=== PATIENT | female | born 1940 | race Caucasian/White ===

== ENCOUNTER 2016-08-20 17:48 | Emergency (ER) | payer MEDICARE, BC ==
[2016-08-20 17:48] VITALS: BP 133/54
--- OUTSIDE RECORDS SUMMARY | 2016-08-20 18:02 | XMS REPORT | Continuity of Care Document ---
:1940 Demographics Phone Unavailable Preferred Language Unknown Marital Status Unknown Gnosticism Affiliation Unknown Race Unknown Ethnic Group Unknown Author Organization [facility] ([facility]) Address [place] [address] Phone [phone] Care Team Providers Name Role Phone Unavailable Primary Care Provider Unavailable Source Comments This disclosure is being made pursuant to the Care Everywhere program, applicable federal and state laws, and may not contain all informaitonavailable regarding this patient.[facility] ([facility]) Active Allergies and Adverse Reactions Not on File Current Medications Not on file Active Problems Not on file Social History Tobacco Use Types Packs/Day Years Used Date Never Assessed Plan of Care Health Maintenance Due Date Last Done Comments Hepatitis B Vaccine (1 of 3 - Primary Series) 1940 Tdap Vaccine 1951 Lipid Disorder Screening 1958 Td Vaccine 1958 Mammogram 1980 Colonoscopy 1990 Zoster Vaccine 2000 Osteoporosis Screening (DXA Bone Density) 2005 Pneumococcal Vaccine (1 of 2 - PCV13) 2005 Influenza Vaccine: Seasonal (#1) 12/11/2015 Results from Last 3 Months Not on file
== END 2016-08-20 17:55 | disposition left against medical advice (07) ==
LOC: ER 17:48
DX: Z53.21 Procedure and treatment not carried out due to patient leaving prior to being seen by health care provider (principal)

== ENCOUNTER 2017-01-22 22:26 | Emergency (ER) | payer MEDICARE, BC ==
--- NOTE | 2017-01-22 22:37 | ERNOTE ---
CARDIAC HPI - General Stated Complaint:: palpatations Time Seen by Provider: 01/22/17 22:35 Source: patient Exam Limitations: no limitations - History of Present Illness Initial Comments: Pt states she has palpitations like this but are not usually this bad. I asked if she was still feeling them she said she was. HR was 81. Timing/Duration: 1/2 hour Severity: moderate, severe Location: central Activities at Onset: none - Immun/Allergies/Home Medicatons Immunizations: IMMUNIZATION HX Immunizations Up to Date Yes History of Influenza Vaccine Yes Hx Pneumococcal Vaccination No Allergies/Adverse Reactions: Allergies Allergy/AdvReac Type Severity Reaction Status Date / Time doxycycline Allergy Severe sore throat Verified 01/26/17 15:25 ezetimibe [From Zetia] Allergy Severe Swelling Verified 01/26/17 15:25 of Throat losartan potassium Allergy Severe Diarrhea Verified 01/26/17 15:25 [From Cozaar] ranitidine Allergy Severe tachycardia Verified 01/26/17 15:25 venom-honey bee Allergy Severe Swelling Verified 01/26/17 15:25 [bee venom (honey bee)] (Other) hydrochlorothiazide Allergy Intermediate Other Verified 01/26/17 15:25 diphenhydramine HCl Allergy Mild Other Verified 01/26/17 15:25 [From Benadryl] guanfacine HCl [From Tenex] AdvReac Intermediate Other Verified 01/26/17 15:25 cefdinir [Cefdinir] AdvReac Mild Diarrhea Verified 01/26/17 15:25 Home Medications: Ambulatory Orders Medication Instructions Recorded Aspirin 0.25 tab PO DAILY 03/12/12 Montelukast Sodium [Singulair] 10 mg PO DAILY 03/12/12 Amlodipine Besylate [Norvasc] 1 tab PO DAILY 08/30/15 Carvedilol [Coreg] 3.125 mg PO BID 01/26/17 predniSONE [Prednisone] 1 tab PO TID #15 tab 01/26/17 Review of Systems - Review of Systems Constitutional: Absent: diaphoresis, fever, recent illness EENTM: Absent: no symptoms reported Respiratory: Absent: short of breath Cardiology: Present: palpitations. Absent: chest pain Gastrointestinal/Abdominal: Absent: nausea, vomiting Musculoskeletal: Present: no symptoms reported Skin: Present: no symptoms reported Neurological: Absent: headache Endocrine: Present: no symptoms reported Hematologic/Lymphatic: Present: no symptoms reported - Patient's Past Medical History Patient History - Medical: Osteoporosis Patient History - Cardiac/Respiratory: Hypertension Patient History - Cancer: No Hx of Cancer Patient History - Surgical Procedures: Appendectomy, Cholecystectomy, T & A Patient History - Other: None - Family History Mother Family History - Medical: , History Unknown Father Family History - Medical: Family History - Cardiac/Respiratory: Pneumonia - Social History Living Situations: home Abuse History: No History of abuse Psych History: Hx of Anxiety Alcohol Use: none Drug Use: none - Immunizations Immunizations Up to Date: Yes Hx Pneumococcal Vaccination: No History of Influenza Vaccine: Yes CP Exam - Physical Exam Narrative: On presentation pt felt that her heart was going fast. HR was 81 on presentation and she still felt like she had a fast HR. General Appearance: Present: WD/WN, anxious Neck: Present: non-tender, full range of motion Respiratory: Present: chest non-tender, lungs clear, normal breath sounds Cardiovascular/Chest: Present: regular rate, rhythm, diastolic murmur - 5/6 Extremity: Present: normal range of motion, non-tender, normal inspection Neurologic: Present: vb net programmer II-XII nml as tested, no motor/sensory deficits Skin Exam: Present: normal color, warm/dry, no cyanosis Lymphatic: Present: no adenopathy ED Progress - PROGRESS/REASSESSMENT Condition: Improved - VITAL SIGNS Patient's Vital Signs:: I have reviewed the patient's vital signs. Vital Signs - Last Taken Temp 36.5 C 02/02/16 08:02 Pulse Resp BP 133/54 02/02/16 08:45 Pulse Ox Departure - Departure Clinical Impression: Palpitations Disposition: Against medical advice Condition: Fair
[2017-01-23 01:49] VITALS: BP 108/52
== END 2017-01-22 23:57 | disposition left against medical advice (07) ==
LOC: ER 22:26
DX: R00.2 Palpitations (principal); Z53.29 Procedure and treatment not carried out because of patient's decision for other reasons

== ENCOUNTER 2017-01-26 14:55 | Emergency (ER) | payer MEDICARE, BC ==
[2017-01-26 15:25] VITALS: BP 157/61
[2017-01-26] MEDS ORDERED: METHYLPREDNISOLONE ACETATE 80 MG/ML VIAL IM ONE (15:39)
[2017-01-26] MEDS ORDERED: METHYLPREDNISOLONE ACETATE 80 MG/ML VIAL ONE (15:43)
--- NOTE | 2017-01-26 15:46 | ERNOTE ---
Integumentary HPI - Narrative Date of Service: 01/26/17 - General Presenting Symptoms: insect bite Time Seen by Provider: 01/26/17 15:33 Source: patient Exam Limitations: no limitations - Immun/Allergies/Home Medications Immunizations: IMMUNIZATION HX Immunizations Up to Date Yes History of Influenza Vaccine Yes Hx Pneumococcal Vaccination No Allergies/Adverse Reactions: Allergies Allergy/AdvReac Type Severity Reaction Status Date / Time doxycycline Allergy Severe sore throat Verified 01/26/17 15:25 ezetimibe [From Zetia] Allergy Severe Swelling Verified 01/26/17 15:25 of Throat losartan potassium Allergy Severe Diarrhea Verified 01/26/17 15:25 [From Cozaar] ranitidine Allergy Severe tachycardia Verified 01/26/17 15:25 venom-honey bee Allergy Severe Swelling Verified 01/26/17 15:25 [bee venom (honey bee)] (Other) hydrochlorothiazide Allergy Intermediate Other Verified 01/26/17 15:25 diphenhydramine HCl Allergy Mild Other Verified 01/26/17 15:25 [From Benadryl] guanfacine HCl [From Tenex] AdvReac Intermediate Other Verified 01/26/17 15:25 cefdinir [Cefdinir] AdvReac Mild Diarrhea Verified 01/26/17 15:25 Home Medications: HOME MEDICATIONS Aspirin 0.25 tab PO DAILY 03/12/12 [Last Taken Unknown] Montelukast Sodium [Singulair] 10 mg PO DAILY 03/12/12 [Last Taken Unknown] Amlodipine Besylate [Norvasc] 1 tab PO DAILY 08/30/15 [Last Taken Unknown] Carvedilol [Coreg] 3.125 mg PO BID 01/26/17 [Last Taken Unknown] predniSONE [Prednisone] 1 tab PO TID #15 tab 01/26/17 [Last Taken Unknown] - Pain Pain Score: 4 - History of Present Illness Narrative: patient stung by bee outside Location: Reports: hands Quality: Reports: itching, painful Severity: moderate Exposure: Reports: bee/wasp sting Modifying Factors - (Improves): Reports: prednisone Modifying Factors - (Worsens): Reports: nothing Associated Symptoms: Reports: rash Review of Systems - Review of Systems Constitutional: Present: See HPI EYE: Present: no symptoms reported ENT: Present: no symptoms reported Respiratory: Present: no symptoms reported Cardiology: Present: no symptoms reported Gastrointestinal/Abdominal: Present: no symptoms reported Genitourinary: Present: no symptoms reported Musculoskeletal: Present: See HPI, other - swelling and rash to left palm Skin: Present: no symptoms reported Neurological: Present: no symptoms reported Endocrine: Present: no symptoms reported Hematologic/Lymphatic: Present: no symptoms reported Psych: Present: no symptoms reported - Patient's Past Medical History Patient History - Medical: No pertinent hx Patient History - Cardiac/Respiratory: Hypertension Patient History - Cancer: No Hx of Cancer Patient History - Surgical Procedures: Appendectomy, Cholecystectomy, T & A Patient History - Other: None - Family History Family History:: no untoward family reactions to anesthesia, no family history of clotting disorders - Family History Mother Family History - Medical: , History Unknown Family History - Cardiac/Respiratory: No pertinent hx Father Family History - Medical: Family History - Cardiac/Respiratory: Pneumonia - Social History Living Situations: alone Abuse History: No History of abuse Psych History: Hx of Anxiety Smoking Status: Never smoker Have you smoked in the past 12 months: No Do you dip or chew tobacco: No Alcohol Use: none Drug Use: none - Immunizations Immunizations Up to Date: Yes Hx Pneumococcal Vaccination: No History of Influenza Vaccine: Yes Physical Exam - Physical Exam General Appearance: Present: mild distress, anxious Head Exam: Present: normal inspection, no evidence of injury Eye Exam: Normal inspection: bilateral, PERRL: bilateral, EOMI: bilateral Ears, Nose, Throat: Present: normal ENT inspection Neck: Present: normal inspection, nontender Respiratory: Present: no respiratory distress, normal breath sounds, no accessory muscle use, chest nontender, lungs clear Cardiovascular/Chest: Present: regular rate, rhythm, normal peripheral pulses, systolic murmur Peripheral Pulses: N=norm/S=strong/W=weak/B=bound/A=absent: Carotid (R): Normal , Carotid (L): Normal, Radial (R): Normal, Radial (L): Normal, Femoral (R): Normal, Femoral (L): Normal, Dorsalis-pedis (R): Normal, Dorsalis-pedis (L): Normal Gastrointestinal/Abdominal: Present: normal bowel sounds, nontender, nondistended, soft, no organomegaly Back Exam: Present: normal inspection, normal range of motion, no CVA tenderness , no vertebral tenderness Extremity Exam: Present: normal inspection, non-tender, normal range of motion, no edema Neurological Exam: Present: alert, oriented, normal mood/affect, no motor/ sensory deficits DTR: N=norm/NB=norm/brisk/A=abs/DD=dull/dimin/HC=hyperactive: Bicep (R): Normal , Bicep (L): Normal, Tricep (R): Normal, Tricep (L): Normal, Knee (R): Normal, Knee (L): Normal, Ankle (R): Normal, Ankle (L): Normal Skin Exam: Present: normal color, warm/dry Lymphatic Exam: Present: no adenopathy ED Progress - Vital Signs Patient's Vital Signs:: I have reviewed the patient's vital signs. Vital Signs: Vital Signs 01/26/17 01/26/17 14:56 15:18 Temperature 36.5 C 37.6 C H Pulse Rate 85 Respiratory 16 Rate Blood Pressure 157/61 O2 Sat by Pulse 98 Oximetry - Progress/Reassessment Chief Complaint: Insect Bite Progress:: Improved - Transfer of Care Expected Disposition: Discharge Departure Clinical Impression: Bee sting reaction - Departure Disposition: Home self-care Condition: Fair Instructions: Bee, Wasp, or Hornet Sting Referrals: Hari Baker DO [Primary Care Provider] - Prescriptions: predniSONE [Prednisone] 1 tab PO TID #15 tab
== END 2017-01-26 15:57 | disposition home or self-care (01) ==
LOC: ER 14:55
DX: T63.441A Toxic effect of venom of bees, accidental (unintentional), initial encounter (principal); Y92.9 Unspecified place or not applicable; I10 Essential (primary) hypertension